=== PATIENT | female | born 1975 | race Caucasian/White ===

== ENCOUNTER 2023-03-01 09:38 | Emergency (ER) | payer OTHER ==
[~2023-03-01] VITALS: Ht 162.6 cm; Wt 85.7 kg
[~2023-03-01 09:38] MED LIST: ALPR0.5T3 PO; AMBI10TA OR; AVEL1TAB2 PO; BACL10TA2 PO; BENZ100C5 PO; CYMB1CAP5 PO; GABA300C2 PO; HYDROCODONE/APAP PO; IBUP200T2 PO; IBUP600T PO; IBUP800T OR; IBUP80TA PO; LEVO150T OR; NUCY50TA PO; PERC5TAB8 OR; SOMA350T OR; ULTR50TA PO; VENTAER IN; VICO5TAB OR; VICO5TAB PO; VICODINES TAB OR; XANA0.5T PO; ZANA4CAP PO; [UNRECOGNIZED DRUG - OTHER] TOP; ambien PO; thyroid supplement PO
[2023-03-01] MEDS ORDERED: LEVO200T4 PO (10:00)
[2023-03-01] MEDS ORDERED: GABA-1171 PO (10:00)
[2023-03-01] MEDS ORDERED: [UNRECOGNIZED DRUG - OTHER] (10:00)
[2023-03-01] MEDS ORDERED: NAPR-837 PO (11:29)
[2023-03-01 11:34] VITALS: BP 132/74; TEMP 98.1; O2SAT 100
== END 2023-03-01 11:43 | disposition home or self-care (01) ==
LOC: M ED 09:38
DX: M25.562 Pain in left knee (principal); M23.92 Unspecified internal derangement of left knee; E03.9 Hypothyroidism, unspecified; F41.9 Anxiety disorder, unspecified; F32.A Depression, unspecified

== ENCOUNTER → 2024-01-01 | Outpatient (CLI) | payer OTHER ==
[~2024-01-01] MED LIST changes: +GABA-1171 PO; +LEVO200T4 PO; +NAPR-837 PO; +[UNRECOGNIZED DRUG - OTHER]
== END ==
LOC: M WHC 14:37
PROVIDERS: ATTEND Nurse Practitioner Family
DX: Z12.31 Encounter for screening mammogram for malignant neoplasm of breast (principal); R92.323 Mammographic fibroglandular density, bilateral breasts

== ENCOUNTER → 2024-03-11 | Outpatient (CLI) | payer OTHER | LOC: M RAD 10:40 | PROVIDERS: ATTEND Internal Medicine | DX: S83.242A Other tear of medial meniscus, current injury, left knee, initial encounter (principal); X58.XXXA Exposure to other specified factors, initial encounter; Y92.9 Unspecified place or not applicable; Y93.9 Activity, unspecified; Y99.9 Unspecified external cause status ==

== ENCOUNTER → 2024-05-03 | Outpatient (CLI) | payer OTHER | LOC: M RAD 13:05 | PROVIDERS: ATTEND Nurse Practitioner Family | DX: E03.9 Hypothyroidism, unspecified (principal) ==

== ENCOUNTER → 2024-05-06 | Outpatient (CLI) | payer OTHER | LOC: M SOG 07:48 | PROVIDERS: ATTEND Physician Assistant | DX: M25.532 Pain in left wrist (principal); M19.042 Primary osteoarthritis, left hand ==

== ENCOUNTER → 2024-07-22 | Outpatient (CLI) | payer OTHER | LOC: M SOG 08:18 | PROVIDERS: ATTEND Physician Assistant | DX: M25.562 Pain in left knee (principal); M25.561 Pain in right knee; Z53.9 Procedure and treatment not carried out, unspecified reason ==

== ENCOUNTER → 2024-08-06 | Outpatient (CLI) | payer OTHER | LOC: M SOG 07:51 | PROVIDERS: ATTEND Physician Assistant | DX: M25.562 Pain in left knee (principal); M17.12 Unilateral primary osteoarthritis, left knee ==

== ENCOUNTER 2024-12-24 10:31 | Emergency (ER) | payer OTHER ==
[~2024-12-24] VITALS: Ht 162.6 cm; Wt 80.9 kg
[2024-12-24] MEDS ORDERED: sertraline (10:52)
[2024-12-24] MEDS ORDERED: lamotrigine (10:52)
[2024-12-24] MEDS ORDERED: cymbalta (10:52)
[2024-12-24 12:05] LABS: BASO % 0.6 % (0.0-1.0); EOS # 0.1 10^3/uL (0.0-0.5); HEMATOCRIT 37.5 % (36.0-47.0); HEMOGLOBIN 12.3 g/dl (12.0-15.5); LYMPH # 1.7 10^3/uL (1.5-5.0); LYMPH % 24.4 % (24.0-44.0); MEAN CORPUSCULAR HEMOGLOBIN 30.1 pg (27.0-33.0); MEAN CORPUSCULAR HGB CONC 32.8 g/dl (32.0-36.5); MEAN CORPUSCULAR VOLUME 91.7 fl (80.0-96.0); MONO # 0.7 10^3/uL (0.0-0.8); MONO % 10.1 % (2.0-8.0); NEUTROPHILS # 4.3 10^3/uL (1.5-8.5); NEUTROPHILS % 62.3 % (36.0-66.0); PLATELET COUNT, AUTOMATED 180 10^3/uL (150-450); RED BLOOD COUNT 4.09 10^6/uL (4.00-5.40); WHITE BLOOD COUNT 6.9 10^3/uL (4.0-10.0)
[2024-12-24 12:32] LABS: LIPASE 49 U/L (12-53)
[2024-12-24 12:35] LABS: ALBUMIN 3.8 G/DL (3.2-5.2); ALKALINE PHOSPHATASE 88 U/L (35-104); ALT/SGPT 18 U/L (7.0-40); AST/SGOT 21 U/L (<34); BILIRUBIN,DIRECT < 0.1 MG/DL (<0.4); BILIRUBIN,TOTAL 0.2 MG/DL (0.3-1.2); BLOOD UREA NITROGEN 23 MG/DL (9-23); CALCIUM LEVEL 8.8 MG/DL (8.5-10.1); CARBON DIOXIDE LEVEL 26 MMOL/L (20-31); CHLORIDE LEVEL 106 MMOL/L (98-107); CREATININE FOR GFR 0.73 MG/DL (0.55-1.30); GLOMERULAR FILTRATION RATE > 60.0 (>58); GLUCOSE, FASTING 117 MG/DL (60-100); POTASSIUM SERUM 4.4 MMOL/L (3.5-5.1); SODIUM LEVEL 139 MMOL/L (136-145); TOTAL PROTEIN 7.2 G/DL (5.7-8.2)
[2024-12-24 13:09] LABS: KETONE, URINE AUTO RFX NEGATIVE (NEGATIVE); LEUKOCYTE ESTERASE UR AUTO RFX NEGATIVE (NEGATIVE); MUCUS, URINE RFX SMALL (NEGATIVE); NITRITE, URINE AUTO RFX NEGATIVE (NEGATIVE); RBC, URINE AUTO RFX 0 /HPF (0-3); SQUAM EPITHELIAL CELL UR AURFX 1 /HPF (0-6); WBC, URINE AUTO RFX 1 /HPF (0-3)
[2024-12-24 13:33] VITALS: TEMP 99.6
[2024-12-24] MEDS ORDERED: ISOVUE-370 76% 100ML VIAL As Ordered ONE (13:56)
[2024-12-24] MEDS: KETOROLAC 30 MG/ML 1ML VIAL IV ONE (14:01)
[2024-12-24] MEDS: MAGNESIUM CITRATE 300ML BTL PO ONE (15:20)
[2024-12-24 15:29] VITALS: BP 145/24; O2SAT 100
== END 2024-12-24 15:32 | disposition home or self-care (01) ==
LOC: M ED 10:31
DX: K59.00 Constipation, unspecified (principal); M79.7 Fibromyalgia; E06.3 Autoimmune thyroiditis; D25.9 Leiomyoma of uterus, unspecified; Z79.890 Hormone replacement therapy
CPT/HCPCS: 72131; 74177; 80048; 80076; 81001; 83690; 85025; 96374; 99284; J1885; Q9967

== ENCOUNTER → 2025-03-29 | Outpatient (CLI) | payer OTHER ==
[~2025-03-29] MED LIST changes: +cymbalta; +lamotrigine; +sertraline
== END ==
LOC: M SOG 07:03
PROVIDERS: ATTEND Physician Assistant
DX: M17.0 Bilateral primary osteoarthritis of knee (principal)

== ENCOUNTER → 2025-06-28 | Outpatient (CLI) | payer OTHER | LOC: M SOG 07:19 | PROVIDERS: ATTEND Orthopaedic Surgery | DX: M17.0 Bilateral primary osteoarthritis of knee (principal) ==

== ENCOUNTER → 2025-08-16 | Outpatient (CLI) | payer OTHER ==
[~2025-08-16] MED LIST changes: +D-101000 PO; +GABA-1172 PO; +IBUP-1720 PO; +LEVO75TA4 PO; +ONDA-282 PO; +OSEL75CA PO; +SERT25TA85 PO
== END ==
LOC: M PLAIMG 06:34
PROVIDERS: ATTEND Orthopaedic Surgery
DX: M17.0 Bilateral primary osteoarthritis of knee (principal)

== ENCOUNTER 2025-08-19 09:06 | Emergency (ER) | payer OTHER ==
[~2025-08-19] VITALS: Ht 162.6 cm; Wt 77.3 kg
[~2025-08-19 09:06] MED LIST changes: -D-101000 PO; -GABA-1172 PO; -IBUP-1720 PO; -LEVO75TA4 PO; -ONDA-282 PO; -OSEL75CA PO; -SERT25TA85 PO
[2025-08-19] MEDS: NS (Normal Saline) 0.9% 1,000 ML IV ONE (09:20)
[2025-08-19] MEDS ORDERED: GABA-1172 PO (09:40)
[2025-08-19] MEDS ORDERED: LEVO75TA4 PO (09:40)
[2025-08-19] MEDS ORDERED: SERT25TA85 PO (09:40)
[2025-08-19] MEDS ORDERED: D-101000 PO (09:40)
[2025-08-19 09:48] LABS: BASO # 0.0 10^3/uL (0.0-0.2); BASO % 0.6 % (0.0-1.0); EOS # 0.2 10^3/uL (0.0-0.5); EOS % 3.4 % (0.0-3.0); LYMPH # 1.2 10^3/uL (1.5-5.0); LYMPH % 17.7 % (24.0-44.0); MONO # 0.4 10^3/uL (0.0-0.8); MONO % 5.9 % (2.0-8.0); NEUTROPHILS # 4.7 10^3/uL (1.5-8.5); NEUTROPHILS % 71.2 % (36.0-66.0); PLATELET COUNT, AUTOMATED 182 10^3/uL (150-450)
[2025-08-19] MEDS: ONDANSETRON 4MG/2ML VIAL IV ONE (10:03)
[2025-08-19] MEDS: KETOROLAC 30 MG/ML 1 ML VIAL IV ONE (10:04)
[2025-08-19 10:23] LABS: ALT/SGPT 26 U/L (7.0-40); AST/SGOT 26 U/L (<34); CALCIUM LEVEL 9.0 MG/DL (8.5-10.1); CARBON DIOXIDE LEVEL 23 MMOL/L (20-31); CHLORIDE LEVEL 105 MMOL/L (98-107); CREATININE FOR GFR 0.74 MG/DL (0.55-1.30); GLOMERULAR FILTRATION RATE > 90.0 (>58); POTASSIUM SERUM 3.8 MMOL/L (3.5-5.1); SODIUM LEVEL 141 MMOL/L (136-145)
[2025-08-19] MEDS ORDERED: IBUP-1720 PO (10:45)
[2025-08-19] MEDS ORDERED: HOME MED LIST COMPLETE! XX SCH (10:50)
[2025-08-19 10:51] LABS: HCG, SERUM QUALITATIVE NEGATIVE (NEGATIVE)
[2025-08-19] MEDS ORDERED: ISOVUE-370 76% 100 ML VIAL As Ordered ONE (11:00)
[2025-08-19] MEDS ORDERED: KETOROLAC 30 MG/ML 1 ML VIAL IV ONE (14:20)
[2025-08-19] MEDS: MORPHINE 4 MG/ML 1 ML VIAL IV ONE (14:38)
[2025-08-19 14:44] VITALS: TEMP 97.6; O2SAT 98
[2025-08-19 15:05] VITALS: BP 160/72
[2025-08-19] MEDS ORDERED: ONDA-282 PO (15:07)
== END 2025-08-19 15:23 | disposition home or self-care (01) ==
LOC: M ED 09:06
DX: N83.201 Unspecified ovarian cyst, right side (principal); D25.9 Leiomyoma of uterus, unspecified; F41.9 Anxiety disorder, unspecified; F32.A Depression, unspecified; E03.9 Hypothyroidism, unspecified; E06.3 Autoimmune thyroiditis; F17.200 Nicotine dependence, unspecified, uncomplicated; F17.290 Nicotine dependence, other tobacco product, uncomplicated; F12.10 Cannabis abuse, uncomplicated; Z79.899 Other long term (current) drug therapy
CPT/HCPCS: 74177; 80048; 80076; 83690; 84703; 85025; 87486; 87507; 87581; 87633; 87798; 96361; 96374; 96375; 99284; J1885; J2405; Q9967

== ENCOUNTER 2025-09-15 05:44 | Emergency (ER) | payer OTHER ==
[~2025-09-15] VITALS: Ht 162.6 cm; Wt 77.2 kg
[~2025-09-15 05:44] MED LIST changes: +D-101000 PO; +GABA-1172 PO; +IBUP-1720 PO; +LEVO75TA4 PO; +ONDA-282 PO; +OSELTAMIVIR PHOSPHATE 75 MG CAP PO SCH; +SERT25TA85 PO
[2025-09-15] MEDS: IBUPROFEN 600 MG TAB PO ONE (06:30)
[2025-09-15] MEDS ORDERED: OSEL75CA PO (07:15)
[2025-09-15] MEDS ORDERED: IBUPROFEN 600 MG TAB PO ONE (07:15)
[2025-09-15] MEDS: OSELTAMIVIR PHOSPHATE 75 MG CAP PO ONE (07:27)
[2025-09-15 07:35] VITALS: BP 151/75; TEMP 98.8; O2SAT 96
== END 2025-09-15 07:35 | disposition home or self-care (01) ==
LOC: M ED 07:21
DX: U07.1 COVID-19 (principal); J09.X2 Influenza due to identified novel influenza A virus with other respiratory manifestations; Z20.89 Contact with and (suspected) exposure to other communicable diseases; F41.9 Anxiety disorder, unspecified; F32.A Depression, unspecified; M79.7 Fibromyalgia; Z79.899 Other long term (current) drug therapy